=== PATIENT | female | born 1990 | race Hispanic/Latino ===

== ENCOUNTER 2019-08-28 06:28 | Day surgery (SDC) | payer OTHER ==
[~2019-08-28] VITALS: Ht 162.6 cm; Wt 74.8 kg
[2019-08-28] VITALS (7 sets, daily range): BP systolic 95–103; BP diastolic 56–71
[~2019-08-28 06:28] MED LIST: SODIUM CHLORIDE 0.9% 1000ML 1,000 ML IV ONE
[2019-08-28] MEDS ORDERED: PROPOFOL 10 MG/ML 20ML VIAL IV ONE (07:01)
== END 2019-08-28 09:00 | disposition home or self-care (01) ==
LOC: DAH 06:28 → ENDO 06:28
PROVIDERS: ATTEND Internal Medicine
DX: R14.0 Abdominal distension (gaseous) (principal); K29.70 Gastritis, unspecified, without bleeding
CPT/HCPCS: 43239; 88305; 88342; A4215; A4221; A4222; A4223; A4606; A4663; J2704; J7030; 43200